=== PATIENT | female | born 1955 | race Caucasian/White ===

== ENCOUNTER 2017-10-11 12:50 | Inpatient (IN) | payer OTHER ==
[~2017-10-11] VITALS: Ht 154.9 cm; Wt 57.6 kg
[~2017-10-11 12:50] MED LIST: FOLIC ACID 1 MG PO; FUROSEMIDE20 M1 PO; HYDROCHLOROTH12.5 M1 PO; NEXIUM 40MG40 MG PO; PERCOCET 325 MG1 TAB PO; VALSARTAN160 MG PO
[2017-10-11 13:38] LABS: ABSOLUTE BASOPHIL COUNT 0.1 /CUMM (0.0-0.2); ABSOLUTE EOSINOPHIL COUNT 0 /CUMM (0.0-0.7); ABSOLUTE GRANULOCYTE CT 9.7 /CUMM (1.4-6.5); ABSOLUTE LYMPH COUNT 0.5 /CUMM (1.2-3.4); ABSOLUTE MONOCYTE COUNT 0.5 /CUMM (0.10-0.60); BASOPHIL % 0.6 % (0.0-2.0); EOSINOPHIL % 0.1 % (0-5); HEMATOCRIT 33.7 % (37-47); MEAN CORPUSCULAR HGB 33.2 PG (27.0-31.0); MEAN CORPUSCULAR HGB CONC 33.5 G/DL (33.0-37.0); MEAN CORPUSCULAR VOLUME 98.9 FL (81.0-99.0); PLATELET COUNT 318 /CUMM (130-400); RBC DISTRIBUTION WIDTH 15.3 % (11.5-14.5); WHITE BLOOD CELL COUNT 10.8 /CUMM (4.8-10.8)
--- NOTE | 2017-10-11 14:07 | ED GI/GU/ABDOMINAL COMPLAINT ---
History of Present Illness General Chief Complaint: Nausea, Vomiting, Diarrhea Stated Complaint: +NV, UNABLE TO KEEP FOOD DOWN Source: patient Exam Limitations: no limitations Vital Signs & Intake/Output Vital Signs & Intake/Output Vital Signs Date Time Temp Pulse Resp B/P B/P Pulse O2 O2 Flow FiO2 Mean Ox Delivery Rate 10/11 1758 100.2 100 18 120/78 98 Room Air 10/11 1608 98.9 90 18 120/75 99 Room Air 10/11 1430 99.1 88 18 112/72 05 1429 99.1 88 18 112/72 97 Room Air 10/11 1255 98.1 104 18 101/67 99 Room Air Allergies Coded Allergies: NO KNOWN ALLERGIES (04/15/14) Triage Note: PT TO ER C/C N/V X "MONTHS" FOLLOWED BY DR. CAMARA. ADVISED TO BE SEEN IN ER FOR ETOH DETOX AND CONTINUED N/V, LAST DRINK 2 DAYS AGO. STATES DRINKS 2-3 GLASSES OF WINE DAILY. DENIES DRUG USE. DENIES HI/SI. DENIES ABD PAIN. NO SEIZURE HX. Triage Nurses Notes Reviewed? yes ? n Is pt currently ? No Onset: Gradual Duration: week(s): Timing: recent history Quality/Severity: moderate HPI: 62 year old female with history of alcohol abuse and pancreatic cyst presents to the emergency room for nausea and vomiting. She states that she has seen Dr. Fernández on Monday and was told that she has lab abnormalities including low sodium. She was told to go to the ER to have an IV. She did not want to come in yesterday. She also has been having nausea and nonbloody vomiting for weeks. She has been unable to eat or drink due to loss of appetite and nausea for two days. She had an endoscopy in the past and was told she has irritation of her stomach lining. Her last drink was two days ago and prior she has been drinking for years of about 18 ounces of wine with some vodka (3 shots). She has also used cocaine in the past. She tried detoxing here at [facility] in the past however relapsed on several occasions. She denies chest pain, shortness of breath, abdominal pain, dizziness, headache, fevers, chills, diarrhea, issues with urination, withdrawal seizures, suicidal ideation, hearing or seeing things. (Adrienne LEMarcela) Reconcile Medications Amitriptyline HCl 25 MG TABLET 1-2 TAB PO QPM PRN SLEEP (Reported) Ferrous Sulfate 325 MG (65 MG IRON) TABLET. 325 MG PO TID Iron . Furosemide 20 MG TABLET 1 TAB PO DAILY WATER RETENTION (Reported) Lorazepam (Ativan) 0.5 MG TABLET 1 TAB PO DAILY NEEDED Taper Please take on 10/17/17 Multivitamin (One Daily Multivitamin) 1 EACH TABLET 1 TAB PO DAILY Vitamin . Omeprazole 20 MG CAPSULE. 40 MG PO DAILY AC GERD . (Sonya ANDERSON,Zeferino Martinez) Past History Travel History Traveled to [place] past 21 day No Medical History Any Pertinent Medical History? see below for history Neurological: NONE EENT: lymph gland removed Cardiovascular: hypertension, hyperlipidemia Respiratory: NONE Gastrointestinal: ACID REFLUX Hepatic: hx hepatitis Renal: NONE Musculoskeletal: NONE Psychiatric: anxiety Endocrine: NONE Blood Disorders: NONE Cancer(s): NONE ELECTRIC WIRER/Reproductive: NONE Surgical History Surgical History: non-contributory Psychosocial History Who do you live with Spouse Services at Home None What is your primary language Swedish Tobacco Use: Quit >30 days ago Family History Hx Contributory? No (Marcela Aguilera) Review of Systems Review of Systems Constitutional: Reports: no symptoms. EENTM: Reports: no symptoms. Respiratory: Reports: no symptoms. Cardiovascular: Reports: no symptoms. GI: Reports: see HPI. Genitourinary: Reports: no symptoms. Musculoskeletal: Reports: no symptoms. Skin: Reports: no symptoms. Neurological/Psychological: Reports: see HPI. Hematologic/Endocrine: Reports: no symptoms. Immunologic/Allergic: Reports: no symptoms. All Other Systems: Reviewed and Negative (Marcela Aguilera) Physical Exam Physical Exam General Appearance: well developed/nourished, no apparent distress, alert, awake Head: atraumatic, normal appearance Eyes: Bilateral: normal appearance. Ears, Nose, Throat, Mouth: hearing grossly normal Neck: normal inspection, supple, full range of motion Respiratory: normal breath sounds, no respiratory distress, lungs clear Cardiovascular: regular rate/rhythm Gastrointestinal: normal bowel sounds, soft, non-tender, no organomegaly Back: normal inspection, normal range of motion Extremities: normal range of motion Neurologic/Psych: awake, alert, oriented x 3 Skin: intact, normal color, warm/dry Core Measures ACS in differential dx? No Sepsis Present: No Sepsis Focused Exam Completed? No (Adrienne LE,Marcela Levy) Progress Differential Diagnosis: appendicitis, bowel obstruction, cholecystitis, diverticulitis, gastritis, hepatitis, hernia, inflamm bowel dis, PID/cervicitis, SBO, UTI/pyelo Plan of Care: Orders Procedure Date/time Status Clear Liquid Diet 10/12 B Active BLOOD CULTURE 10/11 1901 Active Patient Data 10/11 1857 Active Misc Message 10/11 181 Active ED Holding Orders 10/11 181 Active Admit to inpatient 10/11 181 Active Vital Signs 10/11 181 Active Code Status 10/11 181 Active Add-on Test (ER Only) 10/11 1408 Active Intake & Output 10/11 1324 Active Add-on Test (ER Only) 10/11 1322 Active CIWA 10/11 1322 Active MAGNESIUM 10/11 1318 Complete URINE DRUGS OF ABUSE 10/11 1258 Complete URINALYSIS 10/11 1258 Complete LIPASE 10/11 1258 Complete ETHANOL 10/11 1258 Complete COMPREHENSIVE METABOLIC PANEL 10/11 1258 Complete CBC WITHOUT DIFFERENTIAL 10/11 1258 Complete AMYLASE 10/11 1258 Complete Current Medications Sig/Meena Start time Last Medication Dose Stop Time Status Admin Sodium Chloride 1,000 ML ONCE ONE 10/11 1900 AC (Normal Saline 0.9%) 10/12 0139 Laboratory Tests 10/11/17 1318: Anion Gap 24 H, Estimated GFR > 60, BUN/Creatinine Ratio 14.4, Glucose 118 H, Calcium 9.4, Magnesium 1.6, Total Bilirubin 1.5 H, AST 175 H, ALT 48, Alkaline Phosphatase 466 H, Total Protein 8.6 H, Albumin 4.7, Globulin 3.9, Albumin/ Globulin Ratio 1.2, Amylase 48, Lipase 633 H, CBC w Diff NO MAN DIFF REQ, RBC 3.40 L, MCV 98.9, MCH 33.2 H, MCHC 33.5, RDW 15.3 H, MPV 7.0 L, Gran % 89.8 H, Lymphocytes % 4.6 L, Monocytes % 4.9, Eosinophils % 0.1, Basophils % 0.6, Absolute Granulocytes 9.7 H, Absolute Lymphocytes 0.5 L, Absolute Monocytes 0.5, Absolute Eosinophils 0, Absolute Basophils 0.1, Serum Alcohol 117.0 10/11/17 1312: Urine Opiates Screen < 100, Methadone Screen < 40, Barbiturate Screen < 60, Ur Phencyclidine Scrn < 6.00, Amphetamines Screen < 100, U Benzodiazepines Scrn < 85, Urine Cocaine Screen < 50, Urine Cannabis Screen < 5.00, Urine Color YEL, Urine Clarity HAZY H, Urine pH 6.0, Ur Specific Carlton 1.020, Urine Protein TRACE H, Urine Ketones 15 H, Urine Nitrite NEG, Urine Bilirubin NEG@ICTO, Urine Urobilinogen 1.0, Ur Leukocyte Esterase LARGE H, Ur Microscopic SEDIMENT EXAMINED, Urine WBC > 75 H, Ur Epithelial Cells MANY H, Urine Bacteria MANY H , Urine Mucus FEW, Urine Hemoglobin NEG, Urine Glucose NEG Microbiology 10/11 1901 BLOOD: Blood Culture - ORD 10/11 1901 BLOOD: Blood Culture - ORD Patient has elevated lipase, liver enzymes, alkaline phosphatase. Will obtain CT scan of abdomen for further assessment of possible pancreatitis versus hepatitis. Urinalysis suggestive of UTI however patient afebrile. Spoke with GI, Dr. Dia, regarding this patient's labs and she agrees with current plan , she states if patient is admitted she will consult if necessary. CT scan shows hepatic steatosis, no acute abnormality. Patient is unable to tolerate PO and is worried about her safety at home. Spoke with Dr. Hassan regarding this patient. He agrees the plan for admission given hyponatremia, acute elevated liver enzymes/hepatitis, alcohol detox, UTI. Case management recommend full admission, no prior auth required. Spoke with hospitalist Dr. Nash regarding general medicine admission. Patient now febrile, we will treat with IV antibiotics for UTI. Diagnostic Imaging: Viewed by Me: CT Scan. Discussed w/RAD: CT Scan. Radiology Impression: PATIENT: FÉLIX BALLARD PRESENT AGE: 62 PATIENT ACCOUNT NO: [id number] : 56 LOCATION: [facility] ORDERING PHYSICIAN: Marcela LE SERVICE DATE: 10/11/17 EXAM TYPE: CAT - CT ABD & PELVIS W IV CONTRAST EXAMINATION: CT ABDOMEN AND PELVIS WITH CONTRAST CLINICAL INFORMATION: Elevated lipase. Nausea and vomiting. Rule out pancreatitis. History of alcohol abuse. COMPARISON: Abdominal ultrasound 01/2018 and abdominal MRI 04/17/2017. TECHNIQUE: Multidetector volumetric imaging was performed of the abdomen and pelvis following IV administration of 95 mL of Optiray 320 intravenous contrast. Sagittal and coronal reformatted images were obtained on the technologist's workstation. DLP: 280 mGy-cm FINDINGS : LUNG BASES: The visualized lung bases are unremarkable. LIVER, GALLBLADDER, AND BILIARY TREE: Diffuse hepatic steatosis. No focal mass or intrahepatic or extrahepatic biliary ductal dilatation. High density material seen layering in the gallbladder compatible with sludge or small calculi. No pericholecystic inflammatory change. No dilatation of the common bile duct. PANCREAS: No peripancreatic inflammatory change to suggest ongoing inflammation. The known tiny cystic lesions in the pancreatic head are not well resolved on CT. There is no dilatation of the main pancreatic duct. SPLEEN: Unremarkable. ADRENAL GLANDS: Unremarkable. KIDNEYS AND URETERS: No nephrolithiasis or hydronephrosis. Subcentimeter cysts in the right kidney. BLADDER: Unremarkable. GASTROINTESTINAL TRACT: There is a small hiatal hernia. The distal esophagus is diffusely circumferentially thickened. There is diffuse sigmoid diverticulosis without acute inflammatory change. There is no bowel obstruction. No definite polypoid lesion is seen at the ileocecal valve. The appendix is normal. ABDOMINAL WALL: Tiny fat-containing periumbilical hernia. LYMPH NODES: Normal. VASCULAR: Mild atheromatous changes in the abdominal aorta. PELVIC VISCERA: Unremarkable. OSSEOUS STRUCTURES: Mild multilevel degenerative changes in the thoracolumbar spine. IMPRESSION: - No acute inflammatory change in the abdomen or pelvis. No evidence of acute pancreatitis. - Diffuse hepatic steatosis. - Sigmoid diverticulosis without diverticulitis. DICTATED BY: Kavya Saucedo MD DATE/TIME DICTATED:10/11/171641 ENDOSCOPY SUPPORT SPECIALIST:YONATHAN DATE/TIME TRANSCRIBED:1641 CONFIDENTIAL, DO NOT COPY WITHOUT APPROPRIATE AUTHORIZATION. < Electronically signed in Other Vendor System> SIGNED BY: Kavya Saucedo MD 10/11/17 1701 Initial ED EKG: none (Adrienne LE,Marcela Levy) Departure Departure Disposition: STILL A PATIENT Condition: Stable Clinical Impression Primary Impression: Alcohol withdrawal Qualifiers: Complication of substance-induced condition: uncomplicated Qualified Code: F10.230 - Alcohol dependence with withdrawal, uncomplicated Secondary Impressions: Acute hepatitis Hyponatremia Nausea & vomiting Qualifiers: Vomiting type: unspecified Vomiting Intractability: intractable Qualified Code: R11.2 - Nausea with vomiting, unspecified UTI (urinary tract infection) Qualifiers: Urinary tract infection type: acute cystitis Hematuria presence: without hematuria Qualified Code: N30.00 - Acute cystitis without hematuria Referrals: Amanda ANDERSON,Alexander Rollins (PCP/Family) Departure Forms: Customer Survey General Discharge Information Admission Note Spoke With: Tong ANDERSON,Oli Documentation of Exam: Documentation of any treatments & extenuating circumstances including Concerns Regarding Discharge (functional status, medication knowledge or non-compliance, living conditions, etc.) that warrant an admission rather than observation: [ Patient with history of alcoholism requiring alcohol detox and monitor alcohol withdrawal with continued CIWA monitoring, hyponatremia requiring IV fluids, repeat labs, patient is not tolerating PO, requires possible GI consult, UTI with fever requiring possible IV antibiotics, premature discharge medically unsafe] (Adrienne LE,Marcela Levy) Departure Prescriptions: Current Visit Scripts Multivitamin (One Daily Multivitamin) 1 TAB PO DAILY #30 TAB . Omeprazole 40 MG PO DAILY AC #60 CAP . Lorazepam (Ativan) 1 TAB PO DAILY NEEDED #1 TAB Please take on 10/17/17 Ferrous Sulfate 325 MG PO TID #90 TAB . PA/OCEANIC SCIENCES PROFESSOR Co-Sign Statement Statement: ED Attending supervision documentation- [X] I saw and evaluated the patient. I have also reviewed all the pertinent lab results and diagnostic results. I agree with the findings and the plan of care as documented in the PA's/OCEANIC SCIENCES PROFESSOR's documentation. Patient presents for evaluation of a low sodium level with associated nausea and vomiting. Physical examination reveals a benign abdominal examination. [] I have reviewed the ED Record and agree with the PA's/OCEANIC SCIENCES PROFESSOR's documentation. [] Additions or exceptions (if any) to the PAs/OCEANIC SCIENCES PROFESSOR's note and plan are summarized below: [] (Sonya ANDERSON,Zeferino Martinez)
[2017-10-11 14:08] LABS: GRANULOCYTE % 89.8 % (42.2-75.2)
[2017-10-11 14:30] VITALS: BP 112/72
[2017-10-11] MEDS ORDERED: AMITRIPTYLINE H25 M2 PO (14:41)
[2017-10-11 16:30] VITALS: BP 120/75
--- NOTE | 2017-10-11 17:01 | CT SCAN REPORT ---
EXAMINATION: CT ABDOMEN AND PELVIS WITH CONTRAST CLINICAL INFORMATION: Elevated lipase. Nausea and vomiting. Rule out pancreatitis. History of alcohol abuse. COMPARISON: Abdominal ultrasound 06/19/2017 and abdominal MRI 04/17/2017. TECHNIQUE: Multidetector volumetric imaging was performed of the abdomen and pelvis following IV administration of 95 mL of Optiray 320 intravenous contrast. Sagittal and coronal reformatted images were obtained on the technologist's workstation. DLP: 280 mGy-cm FINDINGS: LUNG BASES: The visualized lung bases are unremarkable. LIVER, GALLBLADDER, AND BILIARY TREE: Diffuse hepatic steatosis. No focal mass or intrahepatic or extrahepatic biliary ductal dilatation. High density material seen layering in the gallbladder compatible with sludge or small calculi. No pericholecystic inflammatory change. No dilatation of the common bile duct. PANCREAS: No peripancreatic inflammatory change to suggest ongoing inflammation. The known tiny cystic lesions in the pancreatic head are not well resolved on CT. There is no dilatation of the main pancreatic duct. SPLEEN: Unremarkable. ADRENAL GLANDS: Unremarkable. KIDNEYS AND URETERS: No nephrolithiasis or hydronephrosis. Subcentimeter cysts in the right kidney. BLADDER: Unremarkable. GASTROINTESTINAL TRACT: There is a small hiatal hernia. The distal esophagus is diffusely circumferentially thickened. There is diffuse sigmoid diverticulosis without acute inflammatory change. There is no bowel obstruction. No definite polypoid lesion is seen at the ileocecal valve. The appendix is normal. ABDOMINAL WALL: Tiny fat-containing periumbilical hernia. LYMPH NODES: Normal. VASCULAR: Mild atheromatous changes in the abdominal aorta. PELVIC VISCERA: Unremarkable. OSSEOUS STRUCTURES: Mild multilevel degenerative changes in the thoracolumbar spine. IMPRESSION: - No acute inflammatory change in the abdomen or pelvis. No evidence of acute pancreatitis. - Diffuse hepatic steatosis. - Sigmoid diverticulosis without diverticulitis.
[2017-10-11 18:30] VITALS: BP 120/78
--- NOTE | 2017-10-11 19:53 | History & Physical ---
Yasmin Ritter 10/[birth year]/171946: General Information and HPI MD Statement: I have seen and personally examined FÉLIX BALLARD and documented this H& P. The patient is a 62 year old F who presented with a patient stated chief complaint of [NVD]. Source of Information: patient, old records Exam Limitations: no limitations History of Present Illness: Ms. Amy kohli a 62yio F w/ PMH of hypertension, hyperlipidemia, GERD, alcohol abuse, and pancreatic cyst, presented to the ER for nausea vomiting and fever. Patient underwent EGD in 07/2017 and was advised to follow-up EGD in 2 years, regarding questionable history of short segment Rodriguez's esophagus. However patient was not taking any PPI at home. Patient was complaining of nausea vomiting nonbloody of the food content that she was eating for the past 4 days prior admission, and decreased appetite for the past 2 days. Patient had been taking daily alcohol drink of 1-2 cups at dinner, however denied any alcohol abuse or any previous hospitalization of detox. Patient claims to be only on valsartan 40 mg daily for hypertension, and amitriptyline for anxiety, and outpatient use of furosemide 20 mg for hypertension. During our clinical interaction, patient denied fever/night sweat/weight change/ cough/SOB/Chest Pain/Palpitation/exercise intolerance/Abdominal pain/bowel movement/urinary abnormality, or other skin/musculoskeletal/neurological disorders/mood change/insomnia/dietary/appetite change. -Smoking: never -Alcohol: as above -Rec Drugs: never Allergies/Medications Allergies: Coded Allergies: NO KNOWN ALLERGIES (04/15/14) Home Med list Amitriptyline HCl 25 MG TABLET 1-2 TAB PO QPM PRN SLEEP (Reported) Furosemide 20 MG TABLET 1 TAB PO DAILY WATER RETENTION (Reported) Past History Travel History Traveled to [place] past 21 day No Medical History Neurological: NONE EENT: lymph gland removed Cardiovascular: hypertension, hyperlipidemia Respiratory: NONE Gastrointestinal: ACID REFLUX Hepatic: hx hepatitis Renal: NONE Musculoskeletal: NONE Psychiatric: anxiety Endocrine: NONE Blood Disorders: NONE Cancer(s): NONE TUBE COVERER/Reproductive: NONE Surgical History Surgical History: non-contributory Past Family/Social History Psychosocial History Services at Home: None Review of Systems Review of Systems Constitutional: Reports: see HPI. Exam & Diagnostic Data Last 24 Hrs of Vital Signs/I&O Vital Signs Date Time Temp Pulse Resp B/P B/P Pulse O2 O2 Flow FiO2 Mean Ox Delivery Rate 10/11 2139 99.5 95 20 128/70 99 Room Air 10/12 2003 Room Air 10/11 1830 100.8 100 22 120/78 10/11 1758 100.2 100 18 120/78 98 Room Air 10/11 1630 98.9 90 20 120/75 10/11 1608 98.9 90 18 120/75 99 Room Air 10/11 1430 99.1 88 18 112/72 10/11 1429 99.1 88 18 112/72 97 Room Air 10/11 1255 98.1 104 18 101/67 99 Room Air Intake & Output 10/11 1600 10/11 0800 10/11 0000 Intake Total Output Total Balance Patient 58.967 kg Weight Weight Reported by Patient Measurement Method Physical Exam General Appearance Alert, Oriented X3, Cooperative, No Acute Distress Skin No Rashes, No Breakdown, No Significant Lesion Skin Temp/Moisture Exam: Warm/Dry Sepsis Skin Exam (color): Normal for Ethnicity HEENT Atraumatic Neck Supple, No JVD Cardiovascular Regular Rate, Normal S1, Normal S2 Lungs Clear to Auscultation, Normal Air Movement Abdomen Normal Bowel Sounds, Soft, No Tenderness, No Hepatospenomegaly, No Masses Neurological Normal Speech Extremities No Cyanosis, No Edema, Normal Pulses Last 24 Hrs of Labs/Tim: Laboratory Tests 10/11/17 1318: Anion Gap 24 H, Estimated GFR > 60, BUN/Creatinine Ratio 14.4, Glucose 118 H, Calcium 9.4, Magnesium 1.6, Total Bilirubin 1.5 H, AST 175 H, ALT 48, Alkaline Phosphatase 466 H, Total Protein 8.6 H, Albumin 4.7, Globulin 3.9, Albumin/ Globulin Ratio 1.2, Amylase 48, Lipase 633 H, CBC w Diff NO MAN DIFF REQ, RBC 3.40 L, MCV 98.9, MCH 33.2 H, MCHC 33.5, RDW 15.3 H, MPV 7.0 L, Gran % 89.8 H, Lymphocytes % 4.6 L, Monocytes % 4.9, Eosinophils % 0.1, Basophils % 0.6, Absolute Granulocytes 9.7 H, Absolute Lymphocytes 0.5 L, Absolute Monocytes 0.5, Absolute Eosinophils 0, Absolute Basophils 0.1, Serum Alcohol 117.0 10/11/17 1312: Urine Opiates Screen < 100, Methadone Screen < 40, Barbiturate Screen < 60, Ur Phencyclidine Scrn < 6.00, Amphetamines Screen < 100, U Benzodiazepines Scrn < 85, Urine Cocaine Screen < 50, Urine Cannabis Screen < 5.00, Urine Color YEL, Urine Clarity HAZY H, Urine pH 6.0, Ur Specific [place] 1.020, Urine Protein TRACE H, Urine Ketones 15 H, Urine Nitrite NEG, Urine Bilirubin NEG@ICTO, Urine Urobilinogen 1.0, Ur Leukocyte Esterase LARGE H, Ur Microscopic SEDIMENT EXAMINED, Urine WBC > 75 H, Ur Epithelial Cells MANY H, Urine Bacteria MANY H , Urine Mucus FEW, Urine Hemoglobin NEG, Urine Glucose NEG Microbiology 10/11 1901 BLOOD: Blood Culture - CAN Cancelled: CANCELLED BY REY DIXON 10/11 1901 BLOOD: Blood Culture - CAN Cancelled: Cancelled via OE: Per MD Decision Assessment/Plan Assessment: Problem list & Assessment: Patient presented with symptoms of nausea vomiting, however no abdominal pain or any urinary symptoms/bowel movement abnormalities. No sick contacts were no myocyte foods. Patient's symptom was most likely from his acute alcoholic hepatitis with AST/ALT 175/48, with unknown etiology of hyponatremia, however probably from chronic consumption of alcohol. Her elevation of lipase and alk phosphatase could be related to the pancreatic cyst, pending rule out pancreatitis, however patient had no particular clinical signs of pancreatitis including negative physical examination/imaging. Patient had urinalysis positive for bacteria/WBC/leukoesterase despite patient had no symptoms or leukocytosis. Serum alcohol level 117 w/ CIWA rangin 3-7 #Acute alcoholic hepatitis w/ elevated lipase #UTI with fever #Alcohol withdrawal/detox #PMH of hypertension, hyperlipidemia, pancreatic cyst Hospital Course: - Admit to general medicine -Banana bag -CIWA protocol, hold ativan for now -Tylenol as needed for fever DVT prophylaxis Heparin + ALPS Clear LiquidDiet Full Code As Ranked By This Provider Problem List: 1. Acute hepatitis 2. UTI (urinary tract infection) Qualifiers Urinary tract infection type: acute cystitis Hematuria presence: without hematuria Qualified Code: N30.00 - Acute cystitis without hematuria 3. Hyponatremia 4. Nausea & vomiting Qualifiers Vomiting type: unspecified Vomiting Intractability: intractable Qualified Code: R11.2 - Nausea with vomiting, unspecified Core Measures/Misc (02/26) Acute Coronary Syndrome ACS Diagnosis: No Congestive Heart Failure Congestive Heart Failure Diagnosis No Cerebrovascular Accident CVA/TIA Diagnosis: No VTE (View Protocol) VTE Risk Factors Age>40 No Mechanical VTE Prophylaxis d/t N/A MechProphylax Ordered No VTE Pharm Prophylaxis d/t NA PharmProphylax ordered Sepsis (View protocol) Sepsis Present: No Yesi Aquinovenita 10/11/17 2324: Resident Review Statement Resident Statement: examined this patient, discussed with internal controls manager Other Findings: Patient is a 62-year-old female with past medical history of hypertension, hyperlipidemia, GERD,? Rodriguez's esophagus, chronic iron deficiency anemia, alcohol abuse, pancreatic cyst who presented to the ER for evaluation of nausea and vomiting. Patient reports that she has been having nausea and vomiting for the past week. She has been unable to tolerate any food or drink. Vomitus is foot particles. She was seen by Dr. Krishnamurthy on Monday and was found to have low sodium levels. She was advised to come to the ER for evaluation, but the patient refused to come. Patient has history of alcohol abuse and drinks about 2 glasses of wine( according to the ER reports 18 ounces of wine with 3 shots of vodka). Her last drink was 2 days ago. She has also history of cocaine abuse in the past. She denies any previous detoxes, or alcohol withdrawal seizures or pancreatitis. Denies any chest pain, shortness of breath, palpitations, headaches, abdominal pain, urinary or bowel symptoms. Patient denies any suicidal, homicidal ideations at this time. Patient had an EGD in 07/13/2017 hemorrhagic antral gastritis. Biopsies were negative for malignancy. She has evidence of Rodriguez's esophagus. Repeat biopsy is recommended in 2 years, 2019 for questionable Rodriguez's esophagus and positive family history of gastric cancer. Colonoscopy in 10/15/2015 showed no evidence of malignancy. Recommended follow- up in 5 years that is 2020 given positive family history of colon cancer. Vitals in the ED showed a temperature of 98.1(spiked a fever of 100.2), pulse 104, respiration 18, blood pressure of 101/67. Labs significant for H&H 11.3/ 33.7( baseline 12), Sodium 129, potassium 3.5, anion gap 24, glucose 118, total bili 1.5, AST 175, ALT 148, alkaline phosphatase 466, lipase 633 Serum alcohol level 117 UA showed signs of infection with large leukocyte esterase and many bacteria. CT abdomen and pelvis showed no intermittent changes in abdomen and pelvis, sigmoid diverticulosis with no diverticulitis, diffuse hepatic steatosis. Physical exam: General: Awake, alert, oriented no distress HEENT: PERRLA, EOMI Chest: Clear breath sounds bilaterally CVS: S1 and S2 heard no murmurs Abdomen: BS positive, no tenderness Extremities: Mild tremors, no edema Assessment Intractable nausea and vomiting Alcohol withdrawal Alcoholic hepatitis Transaminitis Sepsis secondary to UTI Hyponatremia Chronic iron deficiency anemia Rodriguez's esophagus Pancreatic cyst GERD Plan * Admit to [facility] * Vitals per protocol * CIWA protocol * IV banana bag and then by mouth multivitamin, thiamine, folate * Ativan 2 mg every 8 hours, Ativan every when necessary per CIWA * Continue IV ceftriaxone for UTI * Tylenol as needed for fever * Blood and urine cultures * Continue ferrous sulfate twice a day for iron deficiency anemia, iron studies * Continue Nexium for GERD * Continue home medications valsartan, Lasix, and amitriptyline. Please confirm medications in a.m. as valsartan does not appear in her chemistry. * Continue Zofran for nausea * Hyponatremia likely secondary to dehydration and alcohol. Repeat BeP in a.m. to check sodium, will check osmolality and urine lites * Check fractionated bilirubin,patient had abdominal ultrasound in the past which showed diffused hepatic steatosis. * Psych consult * Social work consult * DVT prophylaxis subcutaneous Lovenox * Full code Tong ANDERSON, [facility] 10/12/17 0321: Attending MD Review Statement Attending Statement Attending MD Statement: examined this patient, discuss w/resident/PA/TORCH OPERATOR, agreed w/resident/PA/TORCH OPERATOR, reviewed images, amended to note Attending Assessment/Plan: 62 yo F with h/o alcohol dependence, alcoholic hepatitis, HTN, fibromyalgia, anxiety, iron deficiency anemia, GERD, hiatal hernia, is sent in by Dr. Buck for persistent nausea, vomiting and blood work suggestive of hyponatremia. Symptoms of nausea, bilious nonbloody vomiting for the past 1 week, and has been unable to keep anything down for past 2 days. She had bloodwork done on Monday as per Dr. Buck, and was advised to come to ER for low sodium levels. However, she came 2 days later today. Patient reports drinking 2-3 glasses of wine with 3 shots of vodka daily, last drink was 2 days ago. She is not very forthcoming with her alcohol use. ? previous cocaine use. No previous detoxes, and no h/o withdrawal seizures. No SI or HI. Last EGD (Jul 2017): hemorrhagic antral gastritis, hiatal hernia, benign inflammation vs. Rodriguez's esophagus without dysplasia. Patient is supposed to be taking protonix daily. Vitals: Tmax 100.8, tachycardic to 100's, BP 120/78, sats 98% RA. Exam as above. Labs: WBC 10.8, H/H 11.3/33.7, plt 318, Na 129 (baseline 135-140), AG 24, glucose 118, S. Osm 298, Mag 1.6, T. Bili 1.5, AST 175, ALT 48, Alk phos 466, lipase 633. UA hazy, large LE, WBC > 75, many bacteria. Urine tox negative. Alcohol 117. CT abd/pelvis: no acute changes. Distal esophagus is diffusely circumferentially thickened. Diffuse hepatic steatosis. Gallbladder sludge or small calculi without dilatation of CBD. Sigmoid diverticulosis. Assessment and plan: 1. Intractable nausea, vomiting with poor PO intake 2. Alcohol withdrawal 3. Alcohol dependence with alcoholic hepatitis 4. Alcoholic gastritis 5. Hyponatremia 6. Fever could be related to alcohol withdrawal. UA is positive although not a clean catch. CT suggests biliary sludge/ small gallstones with transamintis ? biliary colic but patient has no abdominal pain. 7. Iron deficiency anemia 8. h/o GERD, hiatal hernia 9. Elevated lipase, no evidence of pancreatitis - Admit to General medicine - CIWA protocol - IV ativan per CIWA, PO ativan 2 mg Q6 - Banana bag - Maintenance IV normal saline - Psych consult patient not forthcoming with alcohol use ?denial - Social work consult - Clear liquid diet - IV PPI, anti-emetics - Serial abdomen exams - Given N/V/fever, I cannot rule out possibility of a biliary colic/ cholecystitis in this patient with CT evidence of small gallstones/ biliary sludge. Continue to monitor. - Blood and urine cultures, patient denies urinary symptoms, but given her fever will continue IV ceftriaxone. If her cultures are negative, plan to discontinue antibiotics. - Obtain chest Xray - Check EKG for QTc - Trend sodium levels after IV hydration - Confirm home meds and resume DVT ppx Lovenox. Full code.
[2017-10-11 21:39] VITALS: BP 128/70
--- NOTE | 2017-10-11 22:17 | Admission Certification ---
Admission Certification Certification Statement - As attending physician, I certify that at the time of - admission, based on clinical presentation, severity of - symptoms, need for further diagnostic testing and - therapeutic interventions, and risk of adverse outcomes - without in-hospital treatment, in my clinical assessment, - this patient requires an acute hospital stay for a minimum - of two nights or longer. I have also considered psychsocial - factors such as support system, advanced age, financial - issues, cognitive issues, and failed out-patient treatments, - past re-admission history, safety of patient, and lack of - compliance as applicable. Specific rationale supporting this admission is: Intractable nausea, vomiting, alcohol detox.
[2017-10-12] VITALS (8 sets, daily range): BP systolic 90–115; BP diastolic 56–72
--- NOTE | 2017-10-12 06:57 | PN- Housestaff ---
See Addendum Subjective Follow-up For: Intractable nausea/vomiting, hyponatremia Subjective: No overnight events. The patient was admitted last night. She says she has been experiencing nausea and vomiting since Monday. She did not try anything to make it better and has been laying around the house meanwhile. She went to see her director of medical review, Dr. Oneill, who sent her in for further evaluation. She claims she drinks about 1-2 drinks of alcohol a day but her last drink was on Monday or Monday. She denies any other symptoms including chest pain, shortness of breath, abdominal pain, dysuria, diarrhea, or fever. Review of Systems Constitutional: Reports: see HPI. EENTM: Reports: no symptoms. Cardiovascular: Reports: no symptoms. Respiratory: Reports: no symptoms. Gastrointestinal: Reports: see HPI. Genitourinary: Reports: no symptoms. Musculoskeletal: Reports: no symptoms. Skin: Reports: no symptoms. Neurological/Psychological: Reports: no symptoms. Hematologic/Endocrine: Reports: no symptoms. Immunologic/Allergic: Reports: no symptoms. Objective Last 24 Hrs of Vital Signs/I&O Vital Signs Date Time Temp Pulse Resp B/P B/P Pulse O2 O2 Flow FiO2 Mean Ox Delivery Rate 10/12 0633 98.4 89 20 102/56 98 Room Air 10/12 0122 98.4 86 20 108/58 96 Room Air 10/11 2139 99.5 95 20 128/70 99 Room Air 10/11 2004 Room Air 10/11 1830 100.8 100 22 120/78 / 1758 100.2 100 18 120/78 98 Room Air 05 1630 98.9 90 20 120/75 05/02 1608 98.9 90 18 120/75 99 Room Air 05 1430 99.1 88 18 112/72 05/02 1429 99.1 88 18 112/72 97 Room Air 10/11 1255 98.1 104 18 101/67 99 Room Air Intake & Output 10/12 0800 10/12 0000 10/11 1600 Intake Total 225 Output Total Balance 225 Intake, IV 125 Intake, Oral 100 Patient 54.091 kg 56.954 kg 58.967 kg Weight Weight Bed scale Reported by Patient Measurement Method Physical Exam General Appearance: Alert, Oriented X3, Cooperative, No Acute Distress Cardiovascular: Regular Rate, Normal S1, Normal S2 Lungs: Clear to Auscultation, Normal Air Movement Abdomen: RUQ tenderness to deep palpation Extremities: No Edema, Normal Pulses, No Tenderness/Swelling Current Medications: Current Medications Sig/Meena Start time Last Medication Dose Route Stop Time Status Admin Acetaminophen 325 MG Q6P PRN 10/11 1929 AC PO Amitriptyline HCl 25 MG QPM PRN 10/12 0230 AC PO Amitriptyline HCl 1 MG QPM PRN 10/11 2345 DC PO Ceftriaxone Sodium 1,000 MG Q24H 10/12 1929 AC IV Ceftriaxone Sodium 0 .STK-MED ONE 10/11 1934 DC .ROUTE Ceftriaxone Sodium 1,000 MG ONCE ONE 10/11 1914 DC 10/11 IV 10/12 1915 193 Cyanocobalamin/ 1 BAG ONCE ONE 10/11 2044 DC 10/11 Thiamine/Pyridoxine IV 10/13 443 2236 Dextrose/Water 1,000 ML Enoxaparin Sodium 40 MG DAILY 10/11 192 AC 10/11 SC 2242 Ferrous Sulfate 325 MG TID 10/12 09 AC PO Folic Acid 1 MG DAILY 10/12 09 AC PO Furosemide 20 MG DAILY 10/12 09 AC PO Ketorolac 0 .STK-MED ONE 10/11 193 DC Tromethamine .ROUTE Ketorolac 15 MG ONCE ONE 10/11 1899 DC 10/11 Tromethamine IV 10/11 1900 193 Lorazepam 2 MG Q6 10/12 0215 AC 10/12 PO 0613 Lorazepam 2 MG Q6 10/11 2359 DC PO Lorazepam 1 MG Q1P PRN 10/11 2345 AC IV Metoclopramide HCl 0 .STK-MED ONE 10/11 193 DC .ROUTE Metoclopramide HCl 10 MG ONCE ONE 10/11 190 DC 10/11 IV 10/11 190 1934 Multivitamins 1 TAB DAILY 10/12 0900 AC PO Omeprazole 40 MG DAILY AC 10/12 0700 AC 10/12 PO 0613 Ondansetron HCl 4 MG Q6P PRN 10/11 2345 AC IV Ondansetron HCl 0 .STK-MED ONE 10/11 1432 DC .ROUTE Ondansetron HCl 4 MG ONCE ONE 10/11 1430 DC 10/11 IV 10/11 1431 1427 Sodium Chloride 1,000 ML ONCE ONE 10/11 1900 DC 10/11 IV 10/12 0139 1934 Sodium Chloride 1,000 ML BOLUS ONE 10/11 1415 DC 10/11 IV 10/11 1514 1424 Thiamine HCl 100 MG DAILY 10/12 0900 AC PO Last 24 Hrs of Lab/Tim Results Last 24 Hrs of Labs/Mics: Laboratory Tests 10/11/17 1318: Anion Gap 24 H, Estimated GFR > 60, BUN/Creatinine Ratio 14.4, Glucose 118 H, Serum Osmolality 298 H, Calcium 9.4, Magnesium 1.6, Total Bilirubin 1.5 H, Direct Bilirubin 1.0 H, AST 175 H, ALT 48, Alkaline Phosphatase 466 H, Total Protein 8.6 H, Albumin 4.7, Globulin 3.9, Albumin/Globulin Ratio 1.2, Amylase 48, Lipase 633 H, CBC w Diff NO MAN DIFF REQ, RBC 3.40 L, MCV 98.9, MCH 33.2 H, MCHC 33.5, RDW 15.3 H, MPV 7.0 L, Gran % 89.8 H, Lymphocytes % 4.6 L, Monocytes % 4.9, Eosinophils % 0.1, Basophils % 0.6, Absolute Granulocytes 9.7 H, Absolute Lymphocytes 0.5 L, Absolute Monocytes 0.5, Absolute Eosinophils 0, Absolute Basophils 0.1, Serum Alcohol 117.0 10/11/17 131: Urine Color YEL, Urine Clarity HAZY H, Urine pH 6.0, Ur Specific [place] 1.020, Urine Protein TRACE H, Urine Ketones 15 H, Urine Nitrite NEG, Urine Bilirubin NEG@ICTO, Urine Urobilinogen 1.0, Ur Leukocyte Esterase LARGE H, Ur Microscopic SEDIMENT EXAMINED, Urine WBC > 75 H, Ur Epithelial Cells MANY H, Urine Bacteria MANY H, Urine Mucus FEW, Urine Hemoglobin NEG, Urine Glucose NEG 10/11/17 1312: Urine Opiates Screen < 100, Methadone Screen < 40, Barbiturate Screen < 60, Ur Phencyclidine Scrn < 6.00, Amphetamines Screen < 100, U Benzodiazepines Scrn < 85, Urine Cocaine Screen < 50, Urine Cannabis Screen < 5.00, Urine Osmolality 337, Ur Random Creatinine Pending, Ur Random Sodium Pending, Ur Random Potassium Pending, Fraction Sodium Excret Pending Microbiology 10/12 2351 BLOOD: Blood Culture - COLB 05/02 2352 BLOOD: Blood Culture - COLB 10/11 1901 BLOOD: Blood Culture - CAN Cancelled: CANCELLED BY REY DIXON 10/11 1901 BLOOD: Blood Culture - CAN Cancelled: Cancelled via OE: Jose ANDERSON Decision 10/11 1312 URINE ROUT: Urine Culture - RECD Assessment/Plan Assessment: Ms. Reyes is a 62-year-old female with past medical history of hypertension , hyperlipidemia, GERD, pancreatic cyst was sent in by Karel Buck MD for intractable nausea and vomiting and hyponatremia. Problem List: 1. Intractable nausea/vomiting 2. EtOH abuse 3. Alcoholic hepatitis 4. Normocytic anemia 5. Hyponatremia #Intractable nausea/vomiting: The patient denies significant alcohol use and says she only drinks 1-2 glasses of wine a day. She says her last drink was on Monday. However, her alcohol level was 117 on arrival. She has had no previous seizures or detoxifications. She is a history of alcoholic hepatitis as well as GERD status post endoscopy that revealed inflammation and possible Rodriguez's esophagitis. -[facility] protocol -Ondansetron as needed -Continue omeprazole -Abstinence from alcohol -Consider GI consult -Lorazepam 1.5 mg every 6 hours, taper #Normocytic anemia: Patient had significant hemoglobin drop from 11.3-8.2. She did receive 2 L of IV fluid hydration as well as a banana bag. No signs of active bleeding -Continue to monitor for bleeding -Stool guaiac #Hyponatremia: Sodium was 129 in presentation, dropped to 127 today. TSH, free T4, a.m. cortisol normal. -Hold furosemide -Repeat urinalysis and urine electrolytes -1000 mL fluid restriction #Chronic medical problems: -Continue other home medications DVT prophylaxis with heparin Regular Full Code Problem List: 1. Nausea & vomiting Pain Ratin Pain Location: no Pain Goal: Remain pain free Pain Plan: see a/p Tomorrow's Labs & Rationales: cbc, bep, lft
[2017-10-12 09:48] LABS: ABSOLUTE BASOPHIL COUNT 0 /CUMM (0.0-0.2); ABSOLUTE EOSINOPHIL COUNT 0.1 /CUMM (0.0-0.7); ABSOLUTE GRANULOCYTE CT 3.6 /CUMM (1.4-6.5); ABSOLUTE LYMPH COUNT 0.8 /CUMM (1.2-3.4); ABSOLUTE MONOCYTE COUNT 0.3 /CUMM (0.10-0.60); MEAN PLATELET VOLUME 7.3 FL (7.4-10.4)
[2017-10-12 09:52] LABS: BASOPHIL % 0.6 % (0.0-2.0); EOSINOPHIL % 1.3 % (0-5); GRANULOCYTE % 74.9 % (42.2-75.2); MEAN CORPUSCULAR HGB 34.1 PG (27.0-31.0); MEAN CORPUSCULAR HGB CONC 34.5 G/DL (33.0-37.0); MEAN CORPUSCULAR VOLUME 98.6 FL (81.0-99.0); PLATELET COUNT 178 /CUMM (130-400); RBC DISTRIBUTION WIDTH 15.7 % (11.5-14.5)
[2017-10-12 09:57] LABS: HEMATOCRIT 23.7 % (37-47); RED BLOOD CELL CT 2.41 /CUMM (4.20-5.40); WHITE BLOOD CELL COUNT 4.8 /CUMM (4.8-10.8)
--- NOTE | 2017-10-12 11:22 | ED PSYCHIATRIST/APRN CONSULT ---
Psychiatrist/TREASURY ACCOUNTANT ED Consult Assessment and Plan: HPI: Presents to the ED 10/11/17 @ 1255 with CC of requesting alcohol detox. PMH of hypertension, hyperlipidemia, GERD, alcohol abuse, and pancreatic cyst, questionable history of Sees Dr. Buck, asvised to come to the ED for detox and continued N/V. She reports her last drink 2 days previously, per the triage note. She drinks 2 glasses of wine daily, then adds that she has a small glass of vodka daily. She denies street drug use. Admitted for acute hepatitis, UTI, hyponatremia, nausea and vomiting, alcohol withdrawal PPHx: Anxiety. Managed by her PCP, Dr. Alexander Mayo. Denies hospitalizations FPHx: None Labs: 10/11 UA hazy, yellow, trace protein, ketones 15H, neg nitirite, large leuk.esterase, WBC > 75, many epithelial cells, many bacteria. 10/11/17 @ 1318 shows serum alcohol 117, sodium 129L, potassium 3.5, AG24H, glucose 118, serum osmal. 298H, t. bilirubin 1.5H, d. bilirubin 1.0H, AST 175H, alkaline phosphatase 466H, total protein 8.6 H, lipase 633H 10/12/17 @ 0600 CIWA: 3-6-0-8-3-1-0-3-7-6-3 10/12/17 @ 0633 VS: 102/56, 89HR, 98.4, 20RR, 98% RA 10/12/17 @ 0812 Lorazepam: 4 mg scheduled, no PRN Home medications significant for amitriptyline 25 mg 1-2 tabs PO as needed for sleep/anxiety. MSE: Alert and oriented. Denies AH, VH, TH, and presents no gracy delusions. Thought processes logical. Speech normal in rate and volume. No racing thoughts. Mood normal, affect congruent. Denies suicidal or homicidal ideation. Imp: The patient is working with medical social work to arrange an intake at [facility]. She will have a psychotropic medication evaluation in the program, which will coordinate with Dr. Mayo, PCP. The current alcohol detox protocol is progressing well, the patient is not in any acute distress, and appears comfortable. Plan: 1. Daily thiamine, folic acid and MVI. 2. Continue alcohol detox lorazepam protocol, reducing daily dosing by 20%. Hold scheduled lorazepam for oversedation or respiratory depression. Lorazepam, as needed, per [facility] protocol. 3. Social work is assisting with aftercare planning The patient is not suicidal, not delirious, not psychotic. Psychiatry is signing off. Please reconsult if other psychiatric matters arise Thanks you for this consult.
--- NOTE | 2017-10-12 13:53 | RADIOLOGY REPORT ---
EXAMINATION: XR PORTABLE CHEST CLINICAL INFORMATION: Alcohol withdrawal. COMPARISON: Chest radiograph done on 03/10/2011. TECHNIQUE: Portable frontal view of the chest was obtained. FINDINGS: Both lungs are symmetrically expanded, appear clear. The cardiomediastinal silhouette is within normal limit. There is no pleural effusion or pneumothorax present. The visualized upper abdomen is unremarkable. Postsurgical changes of lower cervical spine fusion is noted. No significant change since 03/10/2011. IMPRESSION: No acute cardiopulmonary disease, appears stable since 03/10/2011.
[2017-10-13] VITALS (7 sets, daily range): BP systolic 94–110; BP diastolic 56–70
--- NOTE | 2017-10-13 06:52 | PN- Housestaff ---
See Addendum Subjective Follow-up For: n/v, EtOH Subjective: No overnight events. She had fever yesterday to 100.8 and defervesced. She feels find though, no chest pain, SOB, N/V, abd pain, dysuria. She has not had a BM in a while though. Review of Systems Constitutional: Reports: no symptoms. EENTM: Reports: no symptoms. Cardiovascular: Reports: no symptoms. Respiratory: Reports: no symptoms. Gastrointestinal: Reports: see HPI. Genitourinary: Reports: no symptoms. Musculoskeletal: Reports: no symptoms. Skin: Reports: no symptoms. Neurological/Psychological: Reports: no symptoms. Hematologic/Endocrine: Reports: no symptoms. Immunologic/Allergic: Reports: no symptoms. Objective Last 24 Hrs of Vital Signs/I&O Vital Signs Date Time Temp Pulse Resp B/P B/P Pulse O2 O2 Flow FiO2 Mean Ox Delivery Rate 10/13 0300 98.5 96 18 96/58 97 / 2308 97.7 109 20 90/56 97 Room Air 10/12 1900 98.8 111 20 100/56 97 Room Air 05/ 1700 99.3 05/ 1500 100.8 111 18 98/70 96 Room Air 05/ 1249 98.6 113 18 106/72 96 Room Air 05/ 1140 99.0 101 18 115/60 95 Room Air 05/ 0830 98.5 104 18 108/60 96 Room Air Intake & Output 10/13 0800 10/13 0000 10/12 1600 Intake Total 300 500 Output Total Balance 300 500 Intake, IV 20 Intake, Oral 300 480 Physical Exam General Appearance: Alert, Oriented X3, Cooperative, No Acute Distress Cardiovascular: Normal S1, Normal S2, tachy Lungs: Clear to Auscultation Abdomen: Normal Bowel Sounds, Soft, No Tenderness Extremities: No Edema, Normal Pulses, No Tenderness/Swelling Current Medications: Current Medications Sig/Meena Start time Last Medication Dose Route Stop Time Status Admin Acetaminophen 500 MG Q6P PRN 10/12 0700 AC PO Acetaminophen 325 MG Q6P PRN 10/11 1930 DC PO Amitriptyline HCl 25 MG QPM PRN 10/12 0230 AC PO Ceftriaxone Sodium 1,000 MG Q24H 10/12 1929 CAN IV Enoxaparin Sodium 40 MG 10/12 AC 10/12 SC 2133 Enoxaparin Sodium 40 MG DAILY 10/11 192 IN 10/11 [place] 2242 Ferrous Sulfate 325 MG TID 10/12 899 AC 10/12 PO 2133 Folic Acid 1 MG DAILY 10/12 899 AC 10/12 PO 0908 Furosemide 20 MG DAILY 10/12 899 IN 10/12 PO 0908 Lorazepam 1 MG Q6 10/13 1200 UNVr PO Lorazepam 1.5 MG Q6 10/12 1200 DC 10/13 PO 0126 Lorazepam 2 MG Q6 10/12 0215 DC 10/12 PO 0613 Lorazepam 1 MG Q1P PRN 10/11 2345 AC IV Multivitamins 1 TAB DAILY 10/12 09 AC 10/12 PO 1242 Omeprazole 40 MG DAILY AC 10/12 07 AC 10/12 PO 0613 Ondansetron HCl 4 MG Q6P PRN 10/11 2345 AC IV Patient Medication 1 ED ONE ONE 10/12 1215 IN 10/12 Teaching ED 10/12 1216 1242 Potassium Chloride 60 MEQ ONCE ONE 10/12 1030 IN 10/12 PO 10/12 1031 1242 Thiamine HCl 100 MG DAILY 10/12 899 10/12 PO 0908 Last 24 Hrs of Lab/Tim Results Last 24 Hrs of Labs/Mics: Laboratory Tests 10/12/17 1200: Urinalysis LIGHT H, Urine Color YEL, Urine Clarity CLEAR, Urine pH 6.5, Ur Specific [place] 1.010, Urine Protein NEG, Urine Ketones NEG, Urine Nitrite NEG, Urine Bilirubin NEG, Urine Urobilinogen 0.2, Ur Leukocyte Esterase TRACE H, Ur Microscopic SEDIMENT EXAMINED, Urine RBC RARE, Urine WBC 1-3 H, Urine Hemoglobin NEG, Urine Glucose NEG 10/12/17 1200: Ur Random Creatinine 6.9, Ur Random Sodium 117 H, Ur Random Potassium 13.9, Fraction Sodium Excret 9.3 H 10/12/17 0815: Anion Gap 11, Estimated GFR > 60, BUN/Creatinine Ratio 14.3, Serum Osmolality 265 L, Total Bilirubin 1.1, Direct Bilirubin 0.8 H, AST 97 H, ALT 28, Alkaline Phosphatase 323 H, Total Protein 6.1 L, Albumin 3.1 L, Triglycerides 91, Cholesterol 134, LDL Cholesterol, Calc 45 L, HDL Cholesterol 71 H, Cholesterol/HDL Ratio 2, TSH 3.350, Free T4 2.23, Cortisol AM Sample 12.7, CBC w Diff NO MAN DIFF REQ, RBC 2.41 L, MCV 98.6, MCH 34.1 H, MCHC 34.5, RDW 15.7 H , MPV 7.3 L, Gran % 74.9, Lymphocytes % 16.1 L, Monocytes % 7.1, Eosinophils % 1.3, Basophils % 0.6, Absolute Granulocytes 3.6, Absolute Lymphocytes 0.8 L, Absolute Monocytes 0.3, Absolute Eosinophils 0.1, Absolute Basophils 0 Microbiology 10/12 161 BLOOD: Blood Culture - RECD 10/12 1614 BLOOD: Blood Culture - RECD Assessment/Plan Assessment: Ms. Reyes is a 62-year-old female with past medical history of hypertension , hyperlipidemia, GERD, pancreatic cyst was sent in by Karel Buck MD for intractable nausea and vomiting and hyponatremia. Problem List: 1. Nausea/vomiting/fever 2. EtOH abuse 3. Alcoholic hepatitis 4. Normocytic anemia 5. Hyponatremia #Nausea/vomiting/fever: The patient presented with symptoms including nausea and vomiting. She had has had 2 low-grade fevers but has not had any further vomiting or diarrhea. She received 1 dose of ceftriaxone for presumed UTI but she had no dysuria and the UA was a dirty catch. I suspect that she is not infected with any bacteria at this time but may be recovering from a viral gastroenteritis. -Ondansetron as needed -Acetaminophen for fevers -Follow cultures -Consider starting antibiotics if repeatedly febrile -Continue omeprazole #EtOH: Patient initially denied heavy drinking but records show significant alcohol history including alcoholic hepatitis and her alcohol level on admission was 117. See was score overnight was 02. -[facility] protocol -Lorazepam 1 mg every 8 hours, taper -Social work consult -Psychiatry consult #Normocytic anemia: Patient had significant hemoglobin drop from 11.3-8.2. She did receive 2 L of IV fluid hydration as well as a banana bag. No signs of active bleeding -Continue to monitor for bleeding -Stool guaiac #Hyponatremia: Sodium was 129 in presentation, dropped to 127 today. TSH, free T4, a.m. cortisol normal. Repeat urinalysis and urine electrolytes show high sodium. -Hold furosemide -1000 mL fluid restriction #Chronic medical problems: -Continue other home medications DVT prophylaxis with heparin Regular Full Code Problem List: 1. EtOH dependence 2. Hyponatremia Pain Ratin Pain Location: no Pain Goal: Remain pain free Pain Plan: see a/p Tomorrow's Labs & Rationales: rey maddox
[2017-10-13 08:06] LABS: ABSOLUTE BASOPHIL COUNT 0 /CUMM (0.0-0.2); ABSOLUTE EOSINOPHIL COUNT 0.1 /CUMM (0.0-0.7); ABSOLUTE GRANULOCYTE CT 4.5 /CUMM (1.4-6.5); ABSOLUTE LYMPH COUNT 1.3 /CUMM (1.2-3.4); ABSOLUTE MONOCYTE COUNT 0.4 /CUMM (0.10-0.60); BASOPHIL % 0.6 % (0.0-2.0); EOSINOPHIL % 1.5 % (0-5); GRANULOCYTE % 71.7 % (42.2-75.2); HEMATOCRIT 24.5 % (37-47); MEAN CORPUSCULAR HGB 33.3 PG (27.0-31.0); MEAN CORPUSCULAR HGB CONC 33.7 G/DL (33.0-37.0); MEAN CORPUSCULAR VOLUME 98.9 FL (81.0-99.0); MEAN PLATELET VOLUME 7.7 FL (7.4-10.4); PLATELET COUNT 192 /CUMM (130-400); RBC DISTRIBUTION WIDTH 15.5 % (11.5-14.5); RED BLOOD CELL CT 2.48 /CUMM (4.20-5.40); WHITE BLOOD CELL COUNT 6.3 /CUMM (4.8-10.8)
[2017-10-13 08:32] LABS: PT 13.1 SEC (9.4-12.5)
[2017-10-14 06:23] VITALS: BP 116/71
[2017-10-14 08:15] LABS: ABSOLUTE BASOPHIL COUNT 0 /CUMM (0.0-0.2); ABSOLUTE EOSINOPHIL COUNT 0.1 /CUMM (0.0-0.7); ABSOLUTE GRANULOCYTE CT 5.1 /CUMM (1.4-6.5); ABSOLUTE LYMPH COUNT 1.2 /CUMM (1.2-3.4); ABSOLUTE MONOCYTE COUNT 0.4 /CUMM (0.10-0.60); BASOPHIL % 0.6 % (0.0-2.0); EOSINOPHIL % 1.4 % (0-5); GRANULOCYTE % 73.8 % (42.2-75.2); HEMATOCRIT 23.4 % (37-47); MEAN CORPUSCULAR HGB 32.5 PG (27.0-31.0); MEAN CORPUSCULAR HGB CONC 32.8 G/DL (33.0-37.0); MEAN CORPUSCULAR VOLUME 99.1 FL (81.0-99.0); MEAN PLATELET VOLUME 7.9 FL (7.4-10.4); PLATELET COUNT 205 /CUMM (130-400); RBC DISTRIBUTION WIDTH 15.6 % (11.5-14.5); RED BLOOD CELL CT 2.36 /CUMM (4.20-5.40); WHITE BLOOD CELL COUNT 6.9 /CUMM (4.8-10.8)
--- NOTE | 2017-10-14 09:24 | PN- Housestaff ---
[facility] 10/14/17 0924: Subjective Follow-up For: Alcohol withdrawal Nausea and vomiting Review of Systems Constitutional: Denies: chills, fever, weakness. EENTM: Reports: no symptoms. Cardiovascular: Denies: chest pain, orthopena, palpitations. Respiratory: Denies: cough, orthopnea, short of breath. Gastrointestinal: Denies: abdominal pain, bloating, constipation, diarrhea, melena, nausea. Genitourinary: Reports: no symptoms. Neurological/Psychological: Reports: no symptoms. Objective Last 24 Hrs of Vital Signs/I&O Vital Signs Date Time Temp Pulse Resp B/P B/P Pulse O2 O2 Flow FiO2 Mean Ox Delivery Rate 10/14 0623 99.1 94 20 116/71 96 Room Air 10/14 0000 99.5 86 / 2301 100.9 105 18 110/70 98 Room Air 05/ 1550 97.7 101 16 98/64 100 Room Air / 1400 98.7 113 / 1350 98.9 113 20 102/60 98 Room Air / 1200 98.7 98 18 98/58 Intake & Output 10/14 1600 0505 0800 05/ 0000 Intake Total 480 490 Output Total Balance 480 490 Intake, IV 0 10 Intake, Oral 480 480 Number 0 0 Bowel Movements Physical Exam General Appearance: Alert, Oriented X3, Cooperative Skin: No Rashes Skin Temp/Moisture Exam: Warm/Dry Sepsis Skin Exam (color): Normal for Ethnicity HEENT: Atraumatic, PERRLA, EOMI Neck: Supple Cardiovascular: Normal S1, Normal S2 Lungs: Clear to Auscultation Abdomen: Soft, No Tenderness Neurological: Normal Speech, Strength at 5/5 X4 Ext, Normal Tone Extremities: No Edema Assessment/Plan Assessment: 62 YO F with past medical history of HTN, HLD, GERD, pancreatic cyst was sent in by Karel Buck MD for intractable nausea and vomiting and hyponatremia. We are following the patient following problems: Alcohol withdrawal: -Contonue CIWA protocol -Continue lorazepam 8 hourly -Follow-up psychiatric consult -Follow-up social work consult -Continue IV Zofran as needed -Continue thiamine and vitamin supplementation UTI: -Bactrim was discontinued as her urine culture is negative. -And is afebrile and her WBC count is in normal limit and she is asymptomatic. Alcoholic gastritis: -Continue omeprazole -Continue Zofran as needed Drop in H&H: -Continue monitoring her H&H -Today his H&H is 7.7/23.4 -Follow-up stool guaiac -DC lovenox as her H & H is dropping -Follow up cbc tomorrow Hyponatremia: -Possibly hypovolemic hyponatremia due to dehydration -Monitor his sodium level -Patient sodium level is gradually improving. -Today his sodium level is 134 DVT prophylaxis: Mechanical only CODE STATUS: Full code Problem List: 1. Nausea & vomiting 2. UTI (urinary tract infection) 3. Alcohol withdrawal Pain Ratin Pain Location: none Pain Goal: Remain pain free Pain Plan: pain pathway Tomorrow's Labs & Rationales: cbc/bep Adeola Goel MD 10/14/17 1120: Attending MD Review Statement Attending Statement Attending MD Statement: examined this patient, discuss w/resident/PA/[employer], agreed w/resident/PA/FIN[employer]ISHER [employer]GING [employer], reviewed EMR data (avail), discussed with nursing, reviewed images Attending Assessment/Plan: 62-year-old female who is here with nausea vomiting, low-grade fevers an acute alcohol withdrawal. Because she was complaining of burning of urination and had low-grade temps she was empirically started on Bactrim for UTI. Given a negative UA and urine culture I will stop the Bactrim. I think the low-grade temps are likely related to the acute alcoholic hepatitis and will need to watch that. Her chest x-ray was negative for pneumonia and a CT abdomen on admission with IV contrast was negative for a focus of infection. Given the alcohol withdrawal and the mild tachycardia will keep the Ativan at 1 mg every 8 for now and not taper it. Encourage by mouth intake and stop IV fluids. She needs a bowel regimen as she is constipated and will follow closely.
[2017-10-14 14:05] VITALS: BP 118/68
[2017-10-14 23:48] VITALS: BP 106/71
[2017-10-15 06:47] VITALS: BP 92/56
--- NOTE | 2017-10-15 08:18 | PN- Housestaff ---
See Addendum Subjective Follow-up For: EtOH Subjective: No overnight events. Patient feels well this morning. No chest pain, shortness of breath, dysuria, abdominal pain, nausea, vomiting. Review of Systems Constitutional: Reports: no symptoms. EENTM: Reports: no symptoms. Cardiovascular: Reports: no symptoms. Respiratory: Reports: no symptoms. Gastrointestinal: Reports: no symptoms. Genitourinary: Reports: no symptoms. Musculoskeletal: Reports: no symptoms. Skin: Reports: no symptoms. Neurological/Psychological: Reports: no symptoms. Hematologic/Endocrine: Reports: no symptoms. Immunologic/Allergic: Reports: no symptoms. Objective Last 24 Hrs of Vital Signs/I&O Vital Signs Date Time Temp Pulse Resp B/P B/P Pulse O2 O2 Flow FiO2 Mean Ox Delivery Rate 10/15 0547 98.7 86 20 92/56 95 10/14 2348 99.2 106 20 106/71 98 Room Air 10/14 1405 99.0 92 20 118/68 95 Room Air Intake & Output 10/15 1600 10/15 0800 10/15 0000 Intake Total 400 Output Total Balance 400 Intake, Oral 400 Physical Exam General Appearance: Alert, Oriented X3, Cooperative, No Acute Distress Cardiovascular: Regular Rate, Normal S1, Normal S2 Lungs: Clear to Auscultation Abdomen: Normal Bowel Sounds, Soft, No Tenderness Extremities: No Edema, Normal Pulses, No Tenderness/Swelling Current Medications: Current Medications Sig/Meena Start time Last Medication Dose Route Stop Time Status Admin Acetaminophen 500 MG Q6P PRN 10/12 07 AC PO Amitriptyline HCl 25 MG QPM PRN 10/12 0230 AC PO Bisacodyl 10 MG ONCE PRN 10/13 1015 AC IL Docusate Sodium 100 MG DAILY NEEDED PRN 10/13 0700 AC PO Enoxaparin Sodium 40 MG 2200 10/12 2200 DC 10/13 SC 2154 Ferrous Sulfate 325 MG TID 10/12 899 AC 10/14 PO 2147 Folic Acid 1 MG DAILY 10/12 899 AC 10/14 PO 0839 Lorazepam 1 MG Q8 10/13 1400 AC 10/15 PO 0603 Lorazepam 1 MG Q1P PRN 10/11 2345 AC IV Multivitamins 1 TAB DAILY 10/12 899 AC 10/14 PO 0839 Omeprazole 40 MG DAILY AC 10/12 0700 AC 10/15 PO 0603 Ondansetron HCl 4 MG Q6P PRN 10/11 2345 AC IV Polyethylene Glycol 17 GM DAILY 10/13 0900 AC 10/14 PO 0838 Potassium Chloride 40 MEQ ONCE ONE 10/14 0945 DC 10/14 PO 10/14 0946 0954 Senna 187 MG 1030 10/13 1030 AC 10/14 PO 0839 Thiamine HCl 100 MG DAILY 10/12 0900 AC 10/14 PO 0839 Trimethoprim/ 1 TAB BID 10/13 2100 DC 10/14 Sulfamethoxazole PO 10/16 0901 0839 Last 24 Hrs of Lab/Tim Results Last 24 Hrs of Labs/Mics: Laboratory Tests 10/15/17 06: Sodium Pending, Potassium Pending, Chloride Pending, Carbon Dioxide Pending, Anion Gap Pending, BUN Pending, Creatinine Pending, BUN/Creatinine Ratio Pending , Total Bilirubin Pending, Direct Bilirubin Pending, AST Pending, ALT Pending, Alkaline Phosphatase Pending, Total Protein Pending, Albumin Pending, CBC w Diff Pending, WBC Pending, RBC Pending, Hgb Pending, Hct Pending, MCV Pending, MCH Pending, MCHC Pending, RDW Pending, Plt Count Pending, MPV Pending Assessment/Plan Assessment: Ms. Reyes is a 62-year-old female with past medical history of hypertension, hyperlipidemia, GERD, pancreatic cyst was sent in by Karel Buck MD for intractable nausea and vomiting and hyponatremia. Problem List: 1. Nausea/vomiting/fever 2. EtOH abuse 3. Alcoholic hepatitis 4. Normocytic anemia 5. Hyponatremia #Nausea/vomiting/fever: The patient presented with symptoms including nausea and vomiting. She had has had 2 low-grade fevers but has not had any further vomiting or diarrhea. She received 1 dose of ceftriaxone for presumed UTI but she had no dysuria and the UA was a dirty catch. On Monday she was complaining of dysuria and she was started on trimethoprim/sulfamethoxazole. UA came back negative however at that time and her dysuria has resolved. The trimethoprim/ sulfamethoxazole has been discontinued. She has remained afebrile. -Ondansetron as needed -Acetaminophen for fevers -Follow cultures -Consider starting antibiotics if repeatedly febrile -Continue omeprazole #EtOH: Patient initially denied heavy drinking but records show significant alcohol history including alcoholic hepatitis and her alcohol level on admission was 117. See was score overnight was 0. -[facility]WA protocol -Lorazepam 0.5 mg every 8 hours, taper -Social work consult -Psychiatry consult #Normocytic anemia: Patient had significant hemoglobin drop from 11.3-8.2. She did receive 2 L of IV fluid hydration as well as a banana bag. No signs of active bleeding, stool guaic negative. -Continue to monitor for bleeding -Stool guaiac #Hyponatremia: Sodium was 129 in presentation, dropped to 127 today. TSH, free T4, a.m. cortisol normal. Repeat urinalysis and urine electrolytes show high sodium. Sodium has been improving. -Hold furosemide -1000 mL fluid restriction #Chronic medical problems: -Continue other home medications DVT prophylaxis with heparin Regular Full Code Problem List: 1. EtOH dependence Pain Ratin Pain Location: no Pain Goal: Remain pain free Pain Plan: see a/p Tomorrow's Labs & Rationales: cbc
[2017-10-15 08:43] LABS: ABSOLUTE BASOPHIL COUNT 0 /CUMM (0.0-0.2); ABSOLUTE EOSINOPHIL COUNT 0.1 /CUMM (0.0-0.7); ABSOLUTE GRANULOCYTE CT 4.8 /CUMM (1.4-6.5); ABSOLUTE LYMPH COUNT 0.8 /CUMM (1.2-3.4); ABSOLUTE MONOCYTE COUNT 0.5 /CUMM (0.10-0.60); BASOPHIL % 0.8 % (0.0-2.0); EOSINOPHIL % 1.7 % (0-5); GRANULOCYTE % 76.6 % (42.2-75.2); HEMATOCRIT 23.5 % (37-47); MEAN CORPUSCULAR VOLUME 99.9 FL (81.0-99.0); MEAN PLATELET VOLUME 7.8 FL (7.4-10.4); PLATELET COUNT 220 /CUMM (130-400); RBC DISTRIBUTION WIDTH 15.9 % (11.5-14.5); RED BLOOD CELL CT 2.36 /CUMM (4.20-5.40); WHITE BLOOD CELL COUNT 6.2 /CUMM (4.8-10.8)
[2017-10-15 15:04] VITALS: BP 94/54
[2017-10-15 16:00] VITALS: BP 94/54
[2017-10-15 18:00] VITALS: BP 106/60
[2017-10-15 22:17] VITALS: BP 100/70
[2017-10-16 05:56] VITALS: BP 110/72
--- NOTE | 2017-10-16 06:56 | PN- Housestaff ---
See Addendum Subjective Follow-up For: EtOH Subjective: No overnight events. Patient slept well and has no pain this morning. She feels ready to go home or rehab today. Review of Systems Constitutional: Reports: no symptoms. EENTM: Reports: no symptoms. Cardiovascular: Reports: no symptoms. Respiratory: Reports: no symptoms. Gastrointestinal: Reports: no symptoms. Genitourinary: Reports: no symptoms. Musculoskeletal: Reports: no symptoms. Skin: Reports: no symptoms. Neurological/Psychological: Reports: no symptoms. Hematologic/Endocrine: Reports: no symptoms. Immunologic/Allergic: Reports: no symptoms. Objective Last 24 Hrs of Vital Signs/I&O Vital Signs Date Time Temp Pulse Resp B/P B/P Pulse O2 O2 Flow FiO2 Mean Ox Delivery Rate 10/16 0556 99.5 85 20 110/72 96 / 2217 99.6 90 20 100/70 97 Room Air 10/15 1800 98.0 90 18 106/60 / 1600 98.1 95 18 94/54 / 1504 98.1 95 18 94/54 95 Intake & Output 10/16 0800 / 0000 10/15 1600 Intake Total 300 600 Output Total Balance 300 600 Intake, Oral 300 600 Physical Exam General Appearance: Alert, Oriented X3, Cooperative, No Acute Distress Cardiovascular: Regular Rate, Normal S1, Normal S2 Lungs: Clear to Auscultation Abdomen: Normal Bowel Sounds, Soft, No Tenderness Extremities: No Edema, Normal Pulses, No Tenderness/Swelling Current Medications: Current Medications Sig/Meena Start time Last Medication Dose Route Stop Time Status Admin Acetaminophen 500 MG Q6P PRN 10/12 07 AC PO Amitriptyline HCl 25 MG QPM PRN 10/12 0230 AC PO Bisacodyl 10 MG ONCE PRN 10/13 1015 AC OK Docusate Sodium 100 MG DAILY NEEDED PRN 10/13 07 AC PO Ferrous Sulfate 325 MG TID 10/12 899 AC 10/15 PO 211 Folic Acid 1 MG DAILY 10/12 899 AC 10/15 PO 0843 Lorazepam 0.5 MG BID 10/16 2100 UNVr PO 10/23 2058 Lorazepam 0.5 MG Q8 10/15 1400 DC 10/16 PO 10/20 1359 0546 Lorazepam 1 MG Q8 10/13 1400 DC 05/06 PO 0603 Lorazepam 1 MG Q1P PRN 10/11 2345 DC IV Multivitamins 1 TAB DAILY 10/12 0900 AC 10/15 PO 0843 Omeprazole 40 MG DAILY AC 10/12 0700 AC 10/16 PO 0546 Ondansetron HCl 4 MG Q6P PRN 10/11 2345 AC IV Polyethylene Glycol 17 GM DAILY 10/13 0900 AC 10/15 PO 0843 Senna 187 MG 1030 10/13 1030 AC 10/15 PO 0843 Thiamine HCl 100 MG DAILY 10/12 09 AC 10/15 PO 0844 Assessment/Plan Assessment: Ms. Reyes is a 62-year-old female with past medical history of hypertension , hyperlipidemia, GERD, pancreatic cyst was sent in by Karel Buck MD for intractable nausea and vomiting and hyponatremia. Problem List: 1. Nausea/vomiting/fever 2. EtOH abuse 3. Alcoholic hepatitis 4. Normocytic anemia 5. Hyponatremia #Nausea/vomiting/fever: The patient presented with symptoms including nausea and vomiting. She had has had 2 low-grade fevers but has not had any further vomiting or diarrhea. She received 1 dose of ceftriaxone for presumed UTI but she had no dysuria and the UA was a dirty catch. On Monday she was complaining of dysuria and she was started on trimethoprim/sulfamethoxazole. UA came back negative however at that time and her dysuria has resolved. The trimethoprim/ sulfamethoxazole has been discontinued. She has remained afebrile. -Ondansetron as needed -Acetaminophen for fevers -Follow cultures -Consider starting antibiotics if repeatedly febrile -Continue omeprazole #EtOH: Patient initially denied heavy drinking but records show significant alcohol history including alcoholic hepatitis and her alcohol level on admission was 117. See was score overnight was 00. -[facility] protocol -Lorazepam 0.5 mg BID, taper -Social work consult -Psychiatry consult #Normocytic anemia: Patient had significant hemoglobin drop from 11.3-8.2. She did receive 2 L of IV fluid hydration as well as a banana bag. No signs of active bleeding, stool guaic negative. -Continue to monitor for bleeding #Hyponatremia: Sodium was 129 in presentation, dropped to 127 today. TSH, free T4, a.m. cortisol normal. Repeat urinalysis and urine electrolytes show high sodium. Sodium has been improving. -Hold furosemide, restart at discharge -1000 mL fluid restriction #Chronic medical problems: -Continue other home medications DVT prophylaxis with heparin Regular Full Code Problem List: 1. EtOH dependence Pain Ratin Pain Location: no Pain Goal: Remain pain free Pain Plan: see a/p Tomorrow's Labs & Rationales: no
[2017-10-16] MEDS ORDERED: ONE DAILY MULT1 EAC2 PO ×2 (08:31→11:09)
[2017-10-16] MEDS ORDERED: OMEPRAZOLE20 M2 PO ×2 (08:31→11:09)
[2017-10-16] MEDS ORDERED: FERROUS SULFAT325 M2 PO ×2 (08:31→11:09)
--- NOTE | 2017-10-16 08:34 | Patient Discharge Instructions ---
Discharge Instructions General Discharge Information You were seen/treated for: Alcohol abuse Watch for these problems: Fever, chest pain, shortness of breath Special Instructions: Please take all medications as directed. Please follow-up with primary care. Diet Continue normal diet: Yes Activity Full Activity/No Limits: Yes Acute Coronary Syndrome Inclusion Criteria At DC or during hospital stay patient has or had the following: ACS DIAGNOSIS No Discharge Core Measures Meds if any: Prescribed or Continued at Discharge Meds if any: NOT Prescribed or Continued at Discharge Congestive Heart Failure Inclusion Criteria At DC or during hospital stay patient has or had the following: CHF DIAGNOSIS No Discharge Core Measures Meds if any: Prescribed or Continued at Discharge Meds if any: NOT Prescribed or Continued at Discharge Cerebrovascular accident Inclusion Criteria At DC or during hospital stay patient has or had the following: CVA/TIA Diagnosis No Discharge Core Measures Meds if any: Prescribed or Continued at Discharge Meds if any: NOT Prescribed or Continued at Discharge Venous thromboembolism Inclusion Criteria VTE Diagnosis No VTE Type NONE VTE Confirmed by (Test) NONE Discharge Core Measures - Per Current guidelines, there needs to be overlap - treatment for the first 5 days of Warfarin therapy. - If discharged on Warfarin prior to 5 days of - overlap therapy, the patient will need to be - assessed for post discharge needs including - *Post discharge parental anticoagulation - *Warfarin and/or parental anticoagulation education - *Follow up date to check INR post discharge At least 5 days overlap therapy as Inpatient No Meds if any: Prescribed or Continued at Discharge Note: Overlap Therapy is Warfarin and Anticoagulant Meds if any: NOT Prescribed or Continued at Discharge
[2017-10-16 08:49] LABS: ABSOLUTE BASOPHIL COUNT 0 /CUMM (0.0-0.2); ABSOLUTE EOSINOPHIL COUNT 0.1 /CUMM (0.0-0.7); ABSOLUTE GRANULOCYTE CT 4.6 /CUMM (1.4-6.5); ABSOLUTE LYMPH COUNT 0.7 /CUMM (1.2-3.4); ABSOLUTE MONOCYTE COUNT 0.6 /CUMM (0.10-0.60); BASOPHIL % 0.6 % (0.0-2.0); EOSINOPHIL % 1.5 % (0-5); GRANULOCYTE % 76.3 % (42.2-75.2); MEAN CORPUSCULAR HGB 32.6 PG (27.0-31.0); MEAN CORPUSCULAR HGB CONC 32.8 G/DL (33.0-37.0); MEAN CORPUSCULAR VOLUME 99.7 FL (81.0-99.0); MEAN PLATELET VOLUME 7.6 FL (7.4-10.4); PLATELET COUNT 271 /CUMM (130-400); RBC DISTRIBUTION WIDTH 16.7 % (11.5-14.5); RED BLOOD CELL CT 2.31 /CUMM (4.20-5.40)
[2017-10-16] MEDS ORDERED: ATIVAN0.5 M1 PO ×2 (10:44→11:09)
--- NOTE | 2017-10-16 11:14 | Discharge Summary ---
Visit Information Visit Dates Admission Date: 10/11/17 Discharge Date: 10/16/17 Hospital Course Course Attending Physician: Michell Luis MD Primary Care Physician: Alexander Patel MD Hospital Course: Ms. Reyes is a 62-year-old female with past medical history of hypertension , hyperlipidemia, GERD, pancreatic cyst was sent in by Karel Buck MD for intractable nausea and vomiting and hyponatremia. She was admitted to general medicine and treated for the following problems: 1. EtOH withdrawal 2. Fever 3. Alcoholic hepatitis 4. Normocytic anemia 5. Hyponatremia #Fever: The patient presented with symptoms including nausea and vomiting. She had has had 2 low-grade fevers but has not had any further vomiting or diarrhea. She received 1 dose of ceftriaxone for presumed UTI but she had no dysuria and the UA was a dirty catch. On Monday she was complaining of dysuria and she was started on trimethoprim/sulfamethoxazole. UA came back negative however at that time and her dysuria has resolved. The trimethoprim/sulfamethoxazole has been discontinued. She has remained afebrile. She was started on omeprazole and should continue this going forward. #EtOH: Patient initially denied heavy drinking but records show significant alcohol history including alcoholic hepatitis and her alcohol level on admission was 117. She was placed on C1 protocol and lorazepam standing dose that was tapered over the course of her admission. Social work and psychiatry were also consulted. She is being discharged with 1 more dose of lorazepam. She should avoid all alcohol in the future. #Normocytic anemia: Patient had significant hemoglobin drop from 11.3-8.2. She did receive 2 L of IV fluid hydration as well as a banana bag. No signs of active bleeding, stool guaic negative. She remained hemodynamically stable. #Hyponatremia: Sodium was 129 in presentation, dropped to 127. TSH, free T4, a.m. cortisol normal. Repeat urinalysis and urine electrolytes show high sodium. Sodium has been improving with fluid restriction and holding furosemide. Her sodium has now normalized and her furosemide will be restarted at discharge. Etiology of her SIADH is unclear. #Chronic medical problems: -Continue other home medications Allergies: Coded Allergies: NO KNOWN ALLERGIES (04/15/14) Disposition Summary Disposition Principal Diagnosis: 1 EtOH withdrawal Additional Diagnosis: 2. Fever 3. Alcoholic hepatitis 4. Normocytic anemia 5. Hyponatremia Discharge Disposition: home or self care Discharge Instructions General Discharge Information Code Status: Full Code Patient's Diet: Regular Patient's Activity: As tolerated Follow-Up Instructions/Appts: Please take all medications as directed. Please follow-up with primary care and avoid all alcohol. Medications at Discharge Discharge Medications: Continue taking these medications: Furosemide (Furosemide) 20 MG TABLET 1 Tablet ORAL DAILY Comments: NOT GIVEN IN HOSPTIAL Amitriptyline HCl (Amitriptyline HCl) 25 MG TABLET 1-2 Tablet ORAL Every night as needed for SLEEP Qty = 30 Comments: NOT GIVEN IN HOSPITAL Start taking the following new medications: Multivitamin (One Daily Multivitamin) 1 EACH TABLET 1 Tablet ORAL DAILY Qty = 30 No Refills Instructions: . Comments: Last Taken: 10/16/17 Time: 8:30 AM Omeprazole (Omeprazole) 20 MG CAPSULE. 40 Milligram ORAL DAILY BEFORE BREAKFAST Qty = 60 No Refills Instructions: . Comments: Last Taken: 10/16/17 Time: 5:45 AM Lorazepam (Ativan) 0.5 MG TABLET 1 Tablet ORAL DAILY NEEDED Qty = 1 No Refills Instructions: Please take on 10/17/17 Comments: Last Taken: 10/16/17 Time: 1:30 PM Ferrous Sulfate (Ferrous Sulfate) 325 MG (65 MG IRON) TABLET. 325 Milligram ORAL THREE TIMES DAILY Qty = 90 No Refills Instructions: . Comments: Last Taken: 10/16/17 Time: 1:30 PM Copies To: John Shelby APRN, MD,Alexander Rollins
== END 2017-10-16 16:30 | DRG 897 ==
LOC: ERH 12:50 → 2NB 18:19 → ERHI 18:19 → ENRESERV 19:16 → ENTRNSPT 19:37 → 2NB 19:57 → EDTRNSPTSTS 19:59 → CMPTRNSPT 20:09 → 2NB 10-12 08:43 → ENPENDDIS 10-16 13:30 → 2NB 10-16 16:30
PROVIDERS: Internal Medicine; Physician Assistant; Student in an Organized Health Care Education/Training Program
PROC: HZ2ZZZZ Detoxification Services for Substance Abuse Treatment (ICD-10-PCS; principal; 2017-10-11)
PROC: HZ89ZZZ Medication Management for Substance Abuse Treatment, Other Replacement Medication (ICD-10-PCS; 2017-10-11)
PROC: HZ99ZZZ Pharmacotherapy for Substance Abuse Treatment, Other Replacement Medication (ICD-10-PCS; 2017-10-11)
DX: F10.239 Alcohol dependence with withdrawal, unspecified (principal); K70.10 Alcoholic hepatitis without ascites; E87.1 Hypo-osmolality and hyponatremia; N39.0 Urinary tract infection, site not specified; Y90.5 Blood alcohol level of 100-119 mg/100 ml; K29.20 Alcoholic gastritis without bleeding; E78.5 Hyperlipidemia, unspecified; I10 Essential (primary) hypertension; K21.9 Gastro-esophageal reflux disease without esophagitis; D50.9 Iron deficiency anemia, unspecified
CPT/HCPCS: 2NBSP; 84133; 84300; 36415; 36592; 71045; 74177; 80307; 81001; 81003; 82436; 82570; 87040; 87086; 93005; 93010; 96361; 96374; G0480; J0696; J1650; J1885; J2405; J2765; J3490; J7060